=== PATIENT | male | born 1985 | race Caucasian/White ===

== ENCOUNTER 2019-06-30 01:41 | Emergency (ER) | payer SELFPAY ==
--- NOTE | 2019-06-30 02:25 | EDPHYS ---
Physician Documentation [facility] Name: Yoel Reyes Age: 34 yrs Sex: Male : 1985 Arrival Date: 06/30/2019 Time: 01:43 Bed 15 Private MD: ED Physician Luis Lopez HPI: 06/30 01:53 This 34 yrs old Male presents to ER via Unassigned with complaints of la1 testicular pain. 01:53 The patient presents with scrotal pain, of both sides, in the area of the epidydimis, la1 without swelling, without erythema. Onset: The symptoms/episode began/occurred 1 week(s) ago. Modifying factors: The symptoms are alleviated by nothing, the symptoms are aggravated by pressure. Associated signs and symptoms: Pertinent negatives: dysuria, fever, hematuria. Severity of symptoms: At their worst the symptoms were very mild, in the emergency department the symptoms are unchanged. The patient has experienced a previous episode. pt reports that he has had pain in his testicles for the past week or so but now he is not having pain unless he squeezes his testicles. . Historical: - Allergies: :59 No Known Allergies; ea - Home Meds: :59 None [Active]; ea - PMHx: :59 None; ea - PSHx: :59 Inguinal hernia repair; ea - Immunization history:: Adult Immunizations up to date. - Social history:: Smoking status: Patient reports the use of cigarette tobacco products, smokes one pack cigarettes per day. - Ebola Screening: : No symptoms or risks identified at this time. ROS: 01:55 Constitutional: Negative for fever, chills, and weight loss, Eyes: Negative for injury, la1 pain, redness, and discharge, ENT: Negative for injury, pain, and discharge, Neck: Negative for injury, pain, and swelling, Cardiovascular: Negative for chest pain, palpitations, and edema, Respiratory: Negative for shortness of breath, cough, wheezing, and pleuritic chest pain, Abdomen/GI: Negative for abdominal pain, nausea, vomiting, diarrhea, and constipation, Back: Negative for injury and pain. 01:55 Skin: Negative for injury, rash, and discoloration, Neuro: Negative for headache, weakness, numbness, tingling, and seizure. 01:55 : Positive for testicular pain Negative for urinary symptoms, urinary frequency, small amounts, hematuria, pelvic pain, flank pain, burning with urination, difficulty urinating. Exam: 01:57 Constitutional: This is a well developed, well nourished patient who is awake, alert, la1 and in no acute distress. Head/Face: Normocephalic, atraumatic. Eyes: Periorbital areas with no swelling, redness, or edema. ENT: Mucous membranes moist. Neck: Trachea midline Chest/axilla: Normal chest wall appearance and motion. Cardiovascular: Regular rate and rhythm with a normal S1 and S2. Respiratory: Lungs have equal breath sounds bilaterally, clear to auscultation Abdomen/GI: Soft, non-tender, with normal bowel sounds. Back: No spinal tenderness. MS/ Extremity: Pulses equal, no cyanosis. Neurovascular intact. Full, normal range of motion. 01:57 Skin: Warm, dry with normal turgor. Normal color with no rashes, no lesions, and no evidence of cellulitis. 01:57 : Male external genitalia: normal, no abrasion, no discharge, no erythema, no injury, no swelling, no tenderness, no evidence of ulceration, Circumcision noted. penile discharge, is absent, Bladder: is normal, non-distended, non-tender. Vital Signs: 02:00 BP 130 / 78; Pulse 98; Resp 17; Temp 97.8; Pulse Ox 100% ; Weight 86.18 kg; Height 5 ea ft. 11 in. (180.34 cm); 02:00 Body Mass Index 26.50 (86.18 kg, 180.34 cm) ea MDM: 01:43 Patient medically screened. la1 02:24 Data reviewed: vital signs, nurses notes, I have discussed the patient's la1 presentation/case with the attending Emergency Department Physician; and as a result, I will discharge patient. Data interpreted: Pulse oximetry: on room air is 100 %. Interpretation: normal. Counseling: I had a detailed discussion with the patient and/or guardian regarding: the historical points, exam findings, and any diagnostic results supporting the discharge/admit diagnosis, lab results, to return to the emergency department if symptoms worsen or persist or if there are any questions or concerns that arise at home. Special discussion: Based on the patient's Hx, exam, and Dx evaluation, there is no indication for emergent surgery or inpatient Tx. It is understood by the patient/guardian that if the Sx's persist or worsen they need to return immediately for re-evaluation. 06/30 01:53 Order name: Urine Dipstick-Ancillary (obtain specimen); Complete Time: 02:27 la1 Administered Medications: No medications were administered Disposition: 09:24 Co-signature as Attending Physician, Luis Lopez MD I agree with the assessment and [facility] plan of care. Disposition: 06/30/19 02:25 Discharged to Home. Impression: Testicular pain. - Condition is Stable. - Discharge Instructions: Testicular Self-Exam, Testicular Self-Exam, [id number]. - Medication Reconciliation Form, Thank You Letter form. - Follow up: Private Physician; When: 2 - 3 days; Reason: Recheck today's complaints, Re-evaluation by your physician. - Problem is new. - Symptoms are unchanged. Signatures: Luis Lopez MD MD cha Attema, Lee, DRAFTER APPRENTICE-C DRAFTER APPRENTICE-Cla1 Tahmina Alanis RN RN ea Corrections: (The following items were deleted from the chart) 02:32 02:25 06/30/2019 02:25 Discharged to Home. Impression: Testicular pain. Condition is ea Stable. Discharge Instructions: Testicular Self-Exam, Testicular Self-Exam, [id number]. Forms are Medication Reconciliation Form, Thank You Letter, Antibiotic Education, Prescription Opioid Use. Follow up: Private Physician; When: 2 - 3 days; Reason: Recheck today's complaints, Re-evaluation by your physician. Problem is new. Symptoms are unchanged. la1
--- NOTE | 2019-06-30 02:25 | ER ---
Nurse's Notes [facility] Name: Yoel Reyes Age: 34 yrs Sex: Male : 1985 Arrival Date: 06/30/2019 Time: 01:43 Bed 15 Private MD: Diagnosis: Testicular pain Presentation: 06/30 01:57 Presenting complaint: Patient states: Reports he is having right testicle pain that ea started over a week ago. States "it hurts when I squeeze it". Transition of care: patient was not received from another setting of care. Onset of symptoms was June 30, 2019. Risk Assessment: Do you want to hurt yourself or someone else? Patient reports no desire to harm self or others. Initial Sepsis Screen: Does the patient meet any 2 criteria? No. Patient's initial sepsis screen is negative. Does the patient have a suspected source of infection? No. Patient's initial sepsis screen is negative. Care prior to arrival: None. 01:57 Method Of Arrival: Ambulatory ea 01:57 Acuity: PATRICIA 5 ea Historical: - Allergies: 01:59 No Known Allergies; ea - Home Meds: 01:59 None [Active]; ea - PMHx: 01:59 None; ea - PSHx: 01:59 Inguinal hernia repair; ea - Immunization history:: Adult Immunizations up to date. - Social history:: Smoking status: Patient reports the use of cigarette tobacco products, smokes one pack cigarettes per day. - Ebola Screening: : No symptoms or risks identified at this time. Screenin:58 Abuse screen: Denies threats or abuse. Nutritional screening: No deficits noted. ea Tuberculosis screening: No symptoms or risk factors identified. Fall Risk None identified. Assessment: 02:01 General: Appears in no apparent distress. unkempt, Behavior is appropriate for age. ea Pain: Complains of pain in groin. Neuro: Level of Consciousness is awake, alert, obeys commands, Oriented to person, place, time, situation. Respiratory: Airway is patent Respiratory effort is even, unlabored, Respiratory pattern is regular, symmetrical. Derm: Skin is pink, warm \\T\\ dry. 02:31 Reassessment: Patient and/or family updated on plan of care and expected duration. Pain ea level reassessed. Patient is alert, oriented x 3, equal unlabored respirations, skin warm/dry/pink. Discharge instruction given to patient, verbalized the understanding of instruction. Pt left ED ambulatory, tolerating well. Vital Signs: 02:00 BP 130 / 78; Pulse 98; Resp 17; Temp 97.8; Pulse Ox 100% ; Weight 86.18 kg; Height 5 ea ft. 11 in. (180.34 cm); 02:00 Body Mass Index 26.50 (86.18 kg, 180.34 cm) ea ED Course: 01:43 Patient arrived in ED. cl3 01:43 [facility]C [facility] la1 01:43 Luis Lopez MD is Attending Physician. la1 01:56 Tahmina Alanis, RN is Primary Nurse. ea 01:58 Triage completed. ea 02:00 Arm band placed on left wrist. Patient placed in an exam room, on a stretcher, on pulse ea oximetry. 02:00 Patient has correct armband on for positive identification. Bed in low position. Call ea light in reach. 02:30 No provider procedures requiring assistance completed. Patient did not have IV access ea during this emergency room visit. Administered Medications: No medications were administered Outcome: 02:25 Discharge ordered by . la1 02:31 Discharged to home ambulatory. ea 02:31 Condition: stable 02:31 Discharge instructions given to patient, Instructed on discharge instructions, follow up and referral plans. Demonstrated understanding of instructions, follow-up care. 02:32 Patient left the ED. ea Signatures: Zeb Johnson FNP-C SUPERVISOR CLAIMS-Cla1 Tahmina Alanis, RN RN Kurt Mcintyre cl3
[2019-06-30 02:38] VITALS: BP 130/78; TEMP 97.8; O2SAT 100
== END 2019-06-30 02:32 | disposition home or self-care (01) ==
LOC: ER 01:41
DX: N50.811 Right testicular pain (principal)
CPT/HCPCS: 99283

== ENCOUNTER 2019-10-26 10:04 | Emergency (ER) | payer SELFPAY ==
--- NOTE | 2019-10-26 11:49 | ER ---
Nurse's Notes [facility] Name: Yoel Reyes Age: 34 yrs Sex: Male : 1985 Arrival Date: 10/26/2019 Time: 10:08 Bed 12 Private MD: Diagnosis: Medication Request: Doxycycline Presentation: 10/25 10:28 Chief complaint: Chief complaint: Patient states: scrotum swelling that began June. Pt denies pain. 10:28 Coronavirus screen: Proceed with normal triage. Patient denies a cough. Patient denies aa5 shortness of breath or difficulty breathing. Patient denies measured and/or subjective temperature greater than 100.4F prior to today's visit. Patient denies travel on a cruise ship or to a country the [facility] currently lists as an affected area. Patient denies contact with known and/or suspected case of COVID-19. Ebola Screen: Patient negative for fever greater than or equal to 101.5 degrees Fahrenheit, and additional compatible Ebola Virus Disease symptoms. Initial Sepsis Screen: Does the patient meet any 2 criteria? No. Patient's initial sepsis screen is negative. Does the patient have a suspected source of infection? No. Patient's initial sepsis screen is negative. Risk Assessment: Do you want to hurt yourself or someone else? Patient reports no desire to harm self or others. Onset of symptoms was June 2019. 10:28 Acuity: PATRICIA 3 aa5 10:28 Method Of Arrival: Ambulatory aa5 Historical: - Allergies: 10:41 No Known Allergies; aa5 - Home Meds: 10:41 None [Active]; aa5 - PMHx: 10:41 None; aa5 - PSHx: 10:41 Inguinal hernia repair; aa5 - Immunization history:: Adult Immunizations unknown. - Social history:: Smoking status: Patient reports the use of cigarette tobacco products. Vital Signs: 10:28 BP 127 / 93; Pulse 60; Resp 18 S; Temp 98.1(O); Pulse Ox 99% on R/A; Weight 89.81 kg aa5 (R); Height 5 ft. 11 in. (180.34 cm) (R); Pain 0/10; 10:28 Body Mass Index 27.62 (89.81 kg, 180.34 cm) aa5 ED Course: 10:08 Patient arrived in ED. ag5 10:14 Italo Hidalgo MD is Attending Physician. kdr 10:28 Arm band placed on. aa5 10:40 Triage completed. aa5 11:03 Sana Galvez, RN is Primary Nurse. Administered Medications: No medications were administered Outcome: 11:04 Medical screen evaluation completed per provider. Patient declined treatment. 11:04 Condition: unchanged 11:04 Following a medical screening exam, the patient was provided information regarding alternative care sites and resources available per registration personnel. 11:04 Discharge ordered by . aa5 11:04 Patient left the ED. Signatures: Italo Hidalgo MD MD kdr Bridget Cheng RN RN [place] [facility] [employer] [facility] Mely Goyal 5 Sana Galvez, RN RN Corrections: (The following items were deleted from the chart) 10:40 10:38 Chief complaint: aa5 aa5 12:00 11:49 Discharge ordered by . kdr aa5 12:00 11:59 Patient left the ED. aa5 aa
--- NOTE | 2019-10-26 11:49 | EDPHYS ---
Physician Documentation [facility] Name: Yoel Reyes Age: 34 yrs Sex: Male : 1985 Arrival Date: 10/26/2019 Time: 10:08 Bed 12 Private MD: ED Physician Italo Hidalgo HPI: 10/25 12:43 This 34 yrs old Male presents to ER via Ambulatory with complaints of kdr Testicular Swelling, Testicular Pain. 12:43 The patient presents with The patient was initially unable to articulate a reason for kdr being here but when prompted admitted to scrotal pain. He only stated that he needed doxycycline. Onset: The symptoms/episode began/occurred acutely, gradually, just prior to arrival, at an unknown time. Modifying factors: The symptoms are alleviated by nothing, the symptoms are aggravated by nothing. Associated signs and symptoms: The patient has no apparent associated signs or symptoms. Severity of symptoms: At their worst the symptoms were very mild, in the emergency department the symptoms are unchanged. The patient has experienced similar episodes in the past, a few times. The patient has not recently seen a physician. Historical: - Allergies: 10:41 No Known Allergies; aa5 - Home Meds: 10:41 None [Active]; aa5 - PMHx: 10:41 None; aa5 - PSHx: 10:41 Inguinal hernia repair; aa5 - Immunization history:: Adult Immunizations unknown. - Social history:: Smoking status: Patient reports the use of cigarette tobacco products. ROS: 12:43 Eyes: Negative for injury, pain, redness, and discharge, Neck: Negative for injury, kdr pain, and swelling, Cardiovascular: Negative for chest pain, palpitations, and edema, Respiratory: Negative for shortness of breath, cough, wheezing, and pleuritic chest pain, Abdomen/GI: Negative for abdominal pain, nausea, vomiting, diarrhea, and constipation, Back: Negative for injury and pain, MS/Extremity: Negative for injury and deformity, Skin: Negative for injury, rash, and discoloration, Neuro: Negative for headache, weakness, numbness, tingling, and seizure activity. 12:43 : Positive for Negative for pelvic pain, flank pain, burning with urination, difficulty urinating, bladder incontinence, foul smelling urine, penile discharge, penile pain, testicular pain Exam: 12:43 Head/Face: Normocephalic, atraumatic. Eyes: Pupils equal round and reactive to light, kdr extra-ocular motions intact. Lids and lashes normal. Conjunctiva and sclera are non-icteric and not injected. Cornea within normal limits. Periorbital areas with no swelling, redness, or edema. Neck: Trachea midline, no thyromegaly or masses palpated, and no cervical lymphadenopathy. Supple, full range of motion without nuchal rigidity, or vertebral point tenderness. No Meningismus. Chest/axilla: Normal chest wall appearance and motion. Nontender with no deformity. No lesions are appreciated. Cardiovascular: Regular rate and rhythm with a normal S1 and S2. No gallops, murmurs, or rubs. Normal PMI, no JVD. No pulse deficits. Male : Normal genitalia with no discharge or lesions. Vital Signs: 10:28 BP 127 / 93; Pulse 60; Resp 18 S; Temp 98.1(O); Pulse Ox 99% on R/A; Weight 89.81 kg aa5 (R); Height 5 ft. 11 in. (180.34 cm) (R); Pain 0/10; 10:28 Body Mass Index 27.62 (89.81 kg, 180.34 cm) aa5 MDM: 11:49 Patient medically screened. kdr 12:43 Data reviewed: vital signs, nurses notes, lab test result(s). Counseling: I had a kdr detailed discussion with the patient and/or guardian regarding: the historical points, exam findings, and any diagnostic results supporting the discharge/admit diagnosis, the need for outpatient follow up. Administered Medications: No medications were administered Disposition: 11:46 Medication request: Doxycycline. kdr Disposition: 10/26/19 11:49 Discharged to Home. Impression: Medication Request: Doxycycline. - Condition is Stable. - Medication Reconciliation Form, Thank You Letter, Antibiotic Education, Prescription Opioid Use form. - Follow up: Private Physician; When: 2 - 3 days; Reason: If symptoms return, Further diagnostic work-up, Recheck today's complaints, Continuance of care, Re-evaluation by your physician. - Problem is new. - Symptoms are unchanged. Signatures: Italo Hidalgo MD MD [facility] Bridget Cheng RN RN aa5 Corrections: (The following items were deleted from the chart) 11:49 11:49 10/26/2019 11:49 Discharged to Home. Impression: Medication Request. Condition is kdr Stable. Forms are Medication Reconciliation Form, Thank You Letter, Antibiotic Education, Prescription Opioid Use. Follow up: Private Physician; When: 2 - 3 days; Reason: If symptoms return, Further diagnostic work-up, Recheck today's complaints, Continuance of care, Re-evaluation by your physician. Problem is new. Symptoms are unchanged. kdr 11:59 11:49 10/26/2019 11:49 Discharged to Home. Impression: Medication Request: Doxycycline. aa5 Condition is Stable. Forms are Medication Reconciliation Form, Thank You Letter, Antibiotic Education, Prescription Opioid Use. Follow up: Private Physician; When: 2 - 3 days; Reason: If symptoms return, Further diagnostic work-up, Recheck today's complaints, Continuance of care, Re-evaluation by your physician. Problem is new. Symptoms are unchanged. kdr
[2019-10-26 12:03] VITALS: BP 127/93; TEMP 98.1; O2SAT 99
== END 2019-10-26 11:59 | disposition home or self-care (01) ==
LOC: ER 10:04
DX: N50.819 Testicular pain, unspecified (principal); F17.210 Nicotine dependence, cigarettes, uncomplicated; Z76.0 Encounter for issue of repeat prescription
CPT/HCPCS: 99281